=== PATIENT | male | born 1980 | race Caucasian/White ===

== ENCOUNTER 2021-02-22 18:44 | Emergency (ER) | payer BC ==
[~2021-02-22] VITALS: Ht 177.8 cm; Wt 84.8 kg
--- NOTE | 2021-02-22 19:10 | NUR ---
Received report from ERIN Osullivan.
--- NOTE | 2021-02-22 19:12 | NUR ---
Dr. Landers at bedside, MSE in progress.
--- NOTE | 2021-02-22 19:22 | NUR ---
Xray at bedside.
[2021-02-22 19:33] LABS: *BILIRUBIN,URIN NEGATIVE (NEGATIVE); *COLOR,URINE YELLOW (YELLOW); *KETONES,URINE TRACE (NEGATIVE); LEUKOCYTE ESTERASE ,URINE 1+ (NEGATIVE); NITRITE, URINE NEGATIVE (NEGATIVE); PH,URINE 8.5 (5.0-8.0); UGLUCOSE NEGATIVE (NEGATIVE)
[2021-02-22 19:35] LABS: *BLOOD, URINE TRACE (NEGATIVE)
[2021-02-22 19:39] LABS: *CLARITY,URINE HAZY (CLEAR); WBC,URINE 20-50 /HPF (0-3)
[2021-02-22 19:40] LABS: BACTERIA,URINE FEW /HPF (NONE SEEN); SQUAMOUS EPITHELIAL CELL,UR FEW /HPF (NONE SEEN)
[2021-02-22 20:17] LABS: HEMATOCRIT 39.1 % (36.7-47.1); MEAN CORPUSCULAR VOLUME 83.1 fL (73.0-96.2); PLATELET COUNT (AUTO) 194 K/uL (152-348)
[2021-02-22 20:17] LABS: CREATININE 1.3 mg/dL (0.6-1.3)
[2021-02-22 20:23] LABS: BILIRUBIN,DIRECT 0.2 mg/dL (0.0-0.2); BILIRUBIN,TOTAL 0.7 mg/dL (0.2-1.0); TOTAL PROTEIN, SERUM 6.6 g/dL (6.4-8.2)
[2021-02-22] MEDS ORDERED: GENTAMICIN SULFATE 20 MG/2 ML VIAL IV ONE ×2 (20:30→20:44)
[2021-02-22] MEDS ORDERED: POTASSIUM CHLORIDE 20 MEQ TAB.PRT.SR PO ONE (20:30)
[2021-02-22] MEDS ORDERED: POTASSIUM CHLORIDE 20 MEQ TAB.PRT.SR ONE (20:44)
[2021-02-22] MEDS ORDERED: CEPH500C2 PO (22:31)
--- NOTE | 2021-02-22 22:45 | NUR ---
Patient discharged to home in stable condition. A/O x4 no SOB or labored breathing. Afebrile. Denies any CP/pressure. Denies any n/v/d. Written and verbal after care instructions given. Patient verbalizes understanding of instructions. Stressed follow up or return to ER for worsening s/s. Accompanied by . Steady gait.
[2021-02-22 22:49] VITALS: BP 114/75
== END 2021-02-22 22:50 | disposition home or self-care (01) ==
LOC: ER 18:45
DX: N39.0 Urinary tract infection, site not specified (principal); E87.6 Hypokalemia; K42.9 Umbilical hernia without obstruction or gangrene; R31.9 Hematuria, unspecified; E83.51 Hypocalcemia
CPT/HCPCS: 36415; 71045; 80048; 80076; 81001; 83605; 84145; 84484; 85025; 85730; 87040 ×2; 87086; 96365; 99284; J1580; 70030-TC; A4663